=== PATIENT | female | born 1990 | race Caucasian/White ===

== ENCOUNTER 2022-04-15 11:33 | Outpatient (CLI) | payer OTHER | END 2022-04-15 11:34 | disposition home or self-care (01) | LOC: CSHRAD 11:33 | PROVIDERS: ATTEND Family Medicine | DX: M79.671 Pain in right foot (principal) ==

== ENCOUNTER 2022-10-05 16:52 | Outpatient (CLI) | payer OTHER | END 2022-10-05 16:53 | disposition home or self-care (01) | LOC: CSHRAD 16:52 | PROVIDERS: ATTEND Family Medicine | DX: R10.9 Unspecified abdominal pain (principal) | CPT/HCPCS: 74019 ==

== ENCOUNTER 2024-03-28 10:59 | Outpatient (CLI) | payer OTHER | END 2024-03-28 11:00 | disposition home or self-care (01) | LOC: CSHRAD 10:59 | PROVIDERS: ATTEND Family Medicine | DX: M25.511 Pain in right shoulder (principal) ==

== ENCOUNTER 2025-09-01 15:05 | Emergency (ER) | payer MEDICAID, OTHER ==
[2025-09-01 18:32] LABS: Glucose, Urine (Dipstick) Normal (Negative); Leukocyte 25 (Negative); Protein, Urine (Dipstick) 30 mg/dl (Neg-Trace); Specific Gravity, Urine 1.025 (1.005-1.030)
[2025-09-01 18:33] LABS: Pregnancy Test - Urine (BHCG) Negative (Negative); Pregu Control Background? CLEAR/WHITE (CLR/WHITE); Pregu Control Bar Appear? YES (CONTROL BAR)
[2025-09-01 18:46] LABS: Bacteria/HPF None Seen HPF (None Seen); CAUTI Indications for Culture Dysuria,urgency,freq; Mucous/LPF 4+ LPF (<2+); RBC/HPF None Seen HPF (0-3); Urine Culture Reflex No No; WBC/HPF 0-3 HPF (0-3)
[2025-09-01] MEDS ORDERED: Ketorolac Tromethamine 30 MG (1 mL) VIAL ONE (19:12)
== END 2025-09-01 20:38 | disposition home or self-care (01) ==
LOC: CSHERS 15:05
DX: S39.012A Strain of muscle, fascia and tendon of lower back, initial encounter (principal); S70.01XA Contusion of right hip, initial encounter; W18.30XA Fall on same level, unspecified, initial encounter
CPT/HCPCS: 72131; 72192; 81001; 81025; J1885